=== PATIENT | male | born 1965 | race Caucasian/White ===

== ENCOUNTER → 2018-01-19 09:05 | Outpatient (CLI) | payer MEDICARE, SELFPAY ==
[2018-01-19 11:56] LABS: ESR 9 MM/HR (1-20)
[2018-01-19 12:04] LABS: Folate 4.6 ng/mL (8.6-20.0)
[2018-01-19 12:15] LABS: C-Reactive Protein 0.87 mg/dL (0.0-0.3)
[2018-01-20 09:21] LABS: PSA, Screening 0.7 ng/ml (0-3.5)
== END ==
PROVIDERS: PCP Emergency Medicine; Visit Provider Emergency Medicine
DX: R05 Cough (principal); N40.0 Benign prostatic hyperplasia without lower urinary tract symptoms; Z12.5 Encounter for screening for malignant neoplasm of prostate
CPT/HCPCS: 36415; 84153; 85652; 82746; 86140